=== PATIENT | female | born 1985 ===

== ENCOUNTER → 2016-06-02 | Outpatient (CLI) | payer OTHER | LOC: SBRMNEURO 21:00 | PROVIDERS: ATTEND Physician Assistant Medical | DX: G47.33 Obstructive sleep apnea (adult) (pediatric) (principal); G47.31 Primary central sleep apnea; G47.61 Periodic limb movement disorder ==

== ENCOUNTER → 2016-11-11 | Outpatient (CLI) | payer OTHER | LOC: BRMIMAGING 14:41 | PROVIDERS: ATTEND Obstetrics & Gynecology Gynecology | DX: R22.1 Localized swelling, mass and lump, neck (principal) ==